=== PATIENT | male | born 1950 | race Caucasian/White ===

== ENCOUNTER 2021-06-13 05:45 | Day surgery (SDC) | payer MEDICARE, OTHER ==
[~2021-06-13] VITALS: Ht 175.3 cm; Wt 107.7 kg
--- NOTE | ~2021-06-13 | OR ---
[facility] [address] [place], [place] [address] [place] DATE OF OPERATION: 06/13/2021 SURGEON: Robert Jason MD, PH.D. PREOPERATIVE DIAGNOSIS: Prostate adenocarcinoma. POSTOPERATIVE DIAGNOSIS: Prostate adenocarcinoma. PROCEDURE: Rectal ultrasound-guided implantation of radioactive iodine-125 seeds into the prostate gland. ANESTHESIA: General. ESTIMATED BLOOD LOSS: Minimal. COMPLICATIONS: None. ANTIBIOTICS: IV levofloxacin. INDICATIONS FOR PROCEDURE: Ethan Perla is a 71-year-old gentleman, who was diagnosed with stage T1c, Emblem grade 3+3=6, PSA 21.0 prostate adenocarcinoma. He recently completed radiation therapy to a dose of 45 jones to the pelvic lymph nodes, seminal vesicles, and prostate gland, ending on May 16, 2021. He is undergoing a radioactive seed implant boost. Prescription dose: 110 jones with iodine-125 seeds with 0.264 millicurie activity. DESCRIPTION OF PROCEDURE: Following induction of adequate anesthesia, the patient was placed in the treatment planning dorsal lithotomy position. A Hoffman catheter was placed and the perineum was prepped with Betadine. The scrotum was elevated onto the abdominal wall and secured with Ioban. The fixation support system was fixed to the table and the ultrasound probe was affixed to the stepper system. Transrectal ultrasound examination of the prostate PATIENT NAME: ETHAN TAYLOR OPERATIVE REPORT DATE OF : 50 REPORT #: [id number] PHYSICIAN: ROBERT JASON PCP: ADÁN GARRISON PA-C REPORT IS CONFIDENTIAL AND NOT TO BE RELEASED WITHOUT AUTHORIZATION [facility] [address] [place], [place] [address] [place] gland was performed with a 6 MHz probe, taking sagittal and transverse views to localize the prostate gland and to make sure the images conformed to the preoperative plan. Once the proper angulation and position were obtained, the apparatus was fixed in position. The template was then attached to the apparatus. Individual preloaded needles were inserted, one needle at a time through the template and perineal skin, and into the prostate gland according to the preoperative plan. Each individual needle was identified on the ultrasound images and inserted into position as close as possible to the pretreatment plan on axial images. Two anchor needles were placed initially to help stabilize the prostate gland. Then, starting anteriorly, one row of needles were placed first. The proper depth of each needle was then confirmed on sagittal images and also by measuring the distance from the template to the hub of each needle with a ruler. Then, needles were slowly withdrawn with the stylet in place, so that the stranded seeds were placed in the prostate gland in the proper position. Then, subsequent rows of needles were placed, one at a time with placement of all the seeds from each row before proceeding to the next row. AP pelvic x-rays were taken periodically to confirm the proper position of the radioactive seeds. Some pubic arch interference was encountered along the lateral right-sided needle positions, particularly anteriorly. The needles were, therefore, placed slightly medial to the desired locations. Two additional seeds were placed close to the prostate base in this right lateral position to try to increase the dose in this area. The treatment plan called for 102 seeds to be implanted, and a total of 104 seeds were placed into the prostate gland using 29 needles for a total activity of 27.46 millicuries. The patient tolerated the procedure well and was taken to the recovery room in good condition. The patient will have a voiding trial prior to discharge. The patient will follow up with me in one month and will perform a CT scan of the pelvis prior to his visit for dosimetric evaluation of his seed implant. He was told to phone our office if he has any difficulties or problems. The patient will also meet with Dr. Guevara for an outpatient cystoscopy to ensure that there are no seeds in the bladder or urethra. CONDITION: Stable. PATIENT NAME: ETHAN TAYLOR OPERATIVE REPORT DATE OF : 50 REPORT #: [id number] PHYSICIAN: ROBERT JASON PCP: ADÁN GARRISON PA-C REPORT IS CONFIDENTIAL AND NOT TO BE RELEASED WITHOUT AUTHORIZATION [address] [address] [place] Robert Jason MD, PH.D. ALEJANDRA/MODL /[id number] cc: Case Guevara MD Copies: CASE GUEVARA MD ~ PATIENT NAME: ETHAN TAYLOR OPERATIVE REPORT DATE OF : 50 REPORT #: [id number] PHYSICIAN: ROBERT JASON PCP: ADÁN GARRISON PA-C REPORT IS CONFIDENTIAL AND NOT TO BE RELEASED WITHOUT AUTHORIZATION
[~2021-06-13 05:45] MED LIST: ASPIRIN EC81 MG PO; AUGMENTIN 875-1 EACH PO; CLOTRIM ANTIFUN15 GM TOP; FLOMAX0.4 MG PO; GLIMEPIRIDE2 MG PO; LANTUS SOL100 UNIT/1 SUB-Q; LANTUS100 UNITS/ SUB-Q; LEVAQUIN500 MG PO; LEVEMIR100 UNIT/1 SUB-Q; LEVOFLOXACIN500 MG PO; LIPITOR40 MG PO; LISINOPRIL10 MG PO; LISINOPRIL5 MG PO; METFORMIN HCL1000 MG PO; NICOTINE PATCH1 EAC1 TD; NORCO 5-325 TA1 EACH PO; NOVOLIN R100 UNIT/1 INJ; NOVOLOG100 UNITS/ SUB-Q; OXYBUTYNIN CHLOR5 MG PO; PERCOCET 5-3251 EACH PO; PYRIDIUM200 MG PO
--- NOTE | 2021-06-13 11:11 | NUR ---
06/13/21 1111 Linda Potter 1034 PT ARRIVED IN PACU SLEEPY WITH NO C/O'S. 1040 BLOOD SUGAR 141. ANESTHESIA AWARE. 1050 SITTING UP IN BED VISITING WITH STAFF. DENTURES RETURNED TO PT. 1100 TO DS. CALL LIGHT IN PLACE. REPORT GIVEN TO RN.
--- NOTE | 2021-06-13 11:13 | NUR ---
1100: PT ARRIVES TO UNIT ROOM 7 FROM PACU VIA STRETCHER. AWAKE AND ALERT ON ARRIVAL. VSS, RESP EVEN AND UNLABORED. DENIES PAIN AND NAUSEA AT THIS TIME. SCDS IN PLACE. NO DRESSING TO SURGICAL SITE, NO DRAINAGE NOTED. ICE WATER, COFFEE AND CRACKERS PROVIDED. NO NEEDS VOICED. CALL LIGHT WITHIN REACH
--- NOTE | 2021-06-13 12:28 | NUR ---
1200: PT AWAKE AND ORIENTED IN STRETCHER. VSS, RESP EVEN AND UNLABORED. KENISHA PO INTAKE WELL. CONTS TO DENY PAIN AND NAUSEA. REPORTS URGE TO VOID. IV CONVERTED TO SL. DANGLES AT THE BEDSIDE, KENISHA WELL. DENIES DIZZINESS AND SOB. AMBULATES TO BR WITH STANDBY ASSIST FROM THIS RN. SUCCESSFUL POSTOP VOID, 100ML. BACK TO ROOM 7 TO DRESS FOR D/C 1220: DC INSTRUCTIONS PROVIDED AND DISCUSSED. PT VOICES UNDERSTANDING AND DENIES QUESTIONS AND CONCERNS AT THIS TIME. SL REMOVED WITH CATH TIP INTACT, PRESSURE APPLIED TO SITE. WNL. PT WHEELED OFF OF UNIT BY THIS RN. TRANSFERS INTO VEHICLE INDEPENDENTLY AND APPROPRIATELY, NO PHYSICAL S/S OF DISTRESS AT THIS TIME
--- NOTE | 2021-06-13 15:12 | NUR ---
PT ALERT, ORIENTED AND ENGAGED LITTLE IN VISIT. WAS POLITE, FEW IF ANY QUESTIONS. THANKED ME FOR VISIT, GAVE BLESSING. WILL FOLLOW NEEDED.
== END 2021-06-13 12:20 | disposition home or self-care (01) ==
LOC: DS 05:45
PROVIDERS: ATTEND Radiology Radiation Oncology
PROC: 0VH031Z Insertion of Radioactive Element into Prostate, Percutaneous Approach (ICD-10-PCS; principal; 2021-06-13 06:45)
DX: C61 Malignant neoplasm of prostate (principal); Z92.3 Personal history of irradiation
CPT/HCPCS: 77470; C2638; J0131; J0330; J1100; J1160; J1720; J1885; J1956; J2250; J2405; J2704; J2765; J3010; J7121